=== PATIENT | male | born 2000 | race Caucasian/White ===

== ENCOUNTER → 2022-05-17 | Outpatient (CLI) | payer OTHER ==
--- NOTE | 2022-05-17 15:34 | XR ---
EXAMINATION TYPE: XR foot complete RT DATE OF EXAM: 05/17/2022 COMPARISON: NONE HISTORY: Pain TECHNIQUE: Three views are submitted. FINDINGS: The osseous structures are intact. There is no acute fracture or dislocation. Joint spaces are p reserved. IMPRESSION: 1. No acute fracture or dislocation. If symptoms persist, follow-up exam in 7 to 10 days could be ob tained.
--- NOTE | 2022-05-17 15:35 | XR ---
EXAMINATION TYPE: XR ankle complete RT DATE OF EXAM: 05/17/2022 COMPARISON: NONE HISTORY: Pain FINDINGS: Three views of the ankle demonstrate the ankle mortise to be intact and symmetric. The joint spaces are preserved. The osseous structures are intact. IMPRESSION: 1. No definite acute fracture or dislocation, if symptoms persist follow-up study in 7 to 10 days wou ld be suggested.
== END | disposition home or self-care (01) ==
LOC: RADXRMAIN 15:07
PROVIDERS: ATTEND Emergency Medicine
DX: S90.01XA Contusion of right ankle, initial encounter (principal); S90.31XA Contusion of right foot, initial encounter

== ENCOUNTER → 2022-06-01 | Outpatient (CLI) | payer OTHER ==
--- NOTE | 2022-06-01 14:26 | XR ---
EXAMINATION TYPE: XR foot complete RT DATE OF EXAM: 06/01/2022 COMPARISON: 05/17/2022 HISTORY: Heel pain TECHNIQUE: Three views are submitted. FINDINGS: The osseous structures are intact. There is no acute fracture or dislocation. Joint spaces are p reserved. There is a tiny linear density along the inferior anterior margin of the calcaneus on today 's exam. IMPRESSION: 1. No definite acute fracture. There is a linear tiny 2 mm density seen along the inferior anterior m argin of the calcaneus only on the lateral view. This would be an atypical location for fracture. Cor relate with point tenderness and CT scan as clinically warranted.
== END | disposition home or self-care (01) ==
LOC: RADXRMAIN 13:42
PROVIDERS: ATTEND Emergency Medicine
DX: S90.31XD Contusion of right foot, subsequent encounter (principal)